=== PATIENT | female | born 1965 | race Caucasian/White ===

== ENCOUNTER 2021-09-06 07:06 | Day surgery (SDC) | payer SELFPAY ==
[~2021-09-06] VITALS: Ht 144.8 cm; Wt 59.9 kg
[~2021-09-06 07:06] MED LIST: ACYCLOVIR800 MG PO; ALLERGY RELIEF180 M1 PO; FLEXERIL PO; FLEXERIL5 MG PO; FLONASE AL50 MCG/ACT IN; LORTAB5 PO; MEDROL4 M1 PO; MONTELUKAST SOD10 MG PO; NAPROSYN500 MG PO; NO HOME MEDS; SOLU-MEDROL125 MG IM; TORADOL30 MG/VIAL IJ; TRAMADOL HCL50 MG PO; ZITHROMAX250 MG PO; ZOFRAN ODT4 MG PO
[2021-09-06 09:10] VITALS: BP 123/66
--- NOTE | 2021-09-13 11:19 | NUR ---
PER MD, ADVISED PATIENT OF COLONOSCOPY RESULTS AND RECOMMENDATION. PER PATIENT AGREED WITH INFORMATION PROVIDED. SHE STATED SHE WILL FOLLOW UP WITH PCP DUE TO BEING SELF PAY PATIENT AND OTHER "ISSUES." NOTE AND REPORT FORWARDED TO PCP FOR CONTINUITY OF CARE.
== END 2021-09-06 09:23 | disposition home or self-care (01) | DRG 392 ==
LOC: ENDO 07:06 → ORM 08:00 → ENDO 08:45 → ORM 08:45 → ENDO 09:23 → ORM 12:00
PROVIDERS: ATTEND Surgery
PROC: 0DJD8ZZ Inspection of Lower Intestinal Tract, Via Natural or Artificial Opening Endoscopic (ICD-10-PCS; principal; 2021-09-06)
DX: R19.4 Change in bowel habit (principal); R63.4 Abnormal weight loss; F17.210 Nicotine dependence, cigarettes, uncomplicated; Z80.0 Family history of malignant neoplasm of digestive organs; Z83.71 Family history of colonic polyps

== ENCOUNTER 2022-11-09 08:17 | Observation (INO) | payer SELFPAY ==
[~2022-11-09] VITALS: Ht 144.8 cm; Wt 50.0 kg
[2022-11-09] VITALS (12 sets, daily range): BP systolic 95–112; BP diastolic 43–71
[2022-11-09 08:46] LABS: BASO% 0.8 % (0-3); EOS% 2.1 % (0-8); HEMATOCRIT 42.4 % (37.0-47.0); HEMOGLOBIN 13.8 g/dl (12.0-16.0); IMMATURE GRANULOCYTES 0.1 % (0.0-5.0); LYMPH% 25.2 % (15-41); MEAN CELL VOLUME 93.2 fL CALC (80.0-100.0); MEAN CORPUSCULAR HGB 30.3 pG CALC (26.0-32.0); MEAN CORPUSCULAR HGB CONC 32.5 g/dL CAL (32.0-36.0); MONO% 6.8 % (2-13); NEUT# 6.12 thou/uL (2.00-7.15); RED BLOOD COUNT 4.55 mill/uL (4.20-5.60); RED CELL DISTRI WIDTH 13.2 % (11.5-15.5)
[2022-11-09 08:52] LABS: ALBUMIN 4.6 g/dL (3.2-5.0); ALKALINE PHOSPHATASE 68 u/l (38-126); ANION GAP 10 (6-22 (CALC)); BILIRUBIN, TOTAL 0.5 mg/dL (0.02-1.3); BUN 11 mg/dL (7-17); BUN/CREATININE RATIO 22 (12-20 (CALC)); CARBON DIOXIDE 27 mmol/l (22-30); CHLORIDE 106 mmol/l (95-108); CREATININE 0.5 mg/dL (0.5-1.0); GFR FOR AFR.AMER. > 60 ML/MIN (>=60 (CALC)); GFR OTHER RACES > 60 ML/MIN (>=60 (CALC)); POTASSIUM 3.9 mmol/l (3.5-5.1); SGOT/AST 29 u/l (14-36); SODIUM 139 mmol/l (137-146); TOTAL PROTEIN 7.3 g/dL (6.3-8.2)
[2022-11-09 10:04] LABS: TSH, 3RD GENERATION 1.11 uIU/mL (0.47 - 4.68)
[2022-11-09] MEDS ORDERED: ALLEGRA ALLERGY60 MG PO (12:28)
[2022-11-10 00:16] VITALS: BP 105/62
[2022-11-10 03:53] VITALS: BP 105/61
[2022-11-10 04:46] LABS: BASO% 1.1 % (0-3); EOS% 4.3 % (0-8); HEMATOCRIT 41.3 % (37.0-47.0); HEMOGLOBIN 13.1 g/dl (12.0-16.0); LYMPH% 47.1 % (15-41); MEAN CELL VOLUME 95.6 fL CALC (80.0-100.0); MEAN CORPUSCULAR HGB 30.3 pG CALC (26.0-32.0); MEAN CORPUSCULAR HGB CONC 31.7 g/dL CAL (32.0-36.0); MONO% 7.7 % (2-13); NEUT# 3.35 thou/uL (2.00-7.15); NEUT% 39.8 % (42-76); RED BLOOD COUNT 4.32 mill/uL (4.20-5.60); RED CELL DISTRI WIDTH 13.6 % (11.5-15.5)
[2022-11-10 04:50] LABS: ALBUMIN 3.9 g/dL (3.2-5.0); ALKALINE PHOSPHATASE 48 u/l (38-126); ANION GAP 7 (6-22 (CALC)); BILIRUBIN, TOTAL 0.6 mg/dL (0.02-1.3); BUN 14 mg/dL (7-17); BUN/CREATININE RATIO 25 (12-20 (CALC)); CALCULATED LDLCHOLESTEROL 118 mg/dL (62-129 (CALC)); CARBON DIOXIDE 28 mmol/l (22-30); CHLORIDE 107 mmol/l (95-108); CREATININE 0.6 mg/dL (0.5-1.0); GFR FOR AFR.AMER. > 60 ML/MIN (>=60 (CALC)); GFR OTHER RACES > 60 ML/MIN (>=60 (CALC)); HDL CHOLESTEROL 63 mg/dL (39.0-59.0); POTASSIUM 4.2 mmol/l (3.5-5.1); SGOT/AST 29 u/l (14-36); SODIUM 138 mmol/l (137-146); TOTAL CHOLESTEROL 203 mg/dl (0-199); TOTAL PROTEIN 6.6 g/dL (6.3-8.2); TOTAL TRIGLYCERIDES 111 mg/dl (0-149); VLDL CHOLESTROL 22 mg/dl (2-49 (CALC))
[2022-11-10 06:42] VITALS: BP 98/54
[2022-11-10] MEDS ORDERED: PEPCID20 MG PO (09:44)
[2022-11-10] MEDS ORDERED: ASPIRIN ADULT L81 M2 PO (09:44)
[2022-11-10 10:14] VITALS: BP 106/63
== END 2022-11-10 14:26 | disposition home or self-care (01) | DRG 313 ==
LOC: ED 08:17 → ED-I 10:00 → ED 10:26 → MS2 10:27
PROVIDERS: Family Medicine; ADMIT Internal Medicine; ATTEND Internal Medicine
DX: R07.9 Chest pain, unspecified (principal); K76.0 Fatty (change of) liver, not elsewhere classified; E78.5 Hyperlipidemia, unspecified; F17.200 Nicotine dependence, unspecified, uncomplicated; Z82.49 Family history of ischemic heart disease and other diseases of the circulatory system
CPT/HCPCS: G0378; J1650